=== PATIENT | female | born 1995 | race Hispanic/Latino ===

== ENCOUNTER 2020-07-25 17:28 | Emergency (ER) | payer OTHER, SELFPAY ==
[2020-07-25] MEDS ORDERED: Promethazine HCl 25 MG/ML VIAL ONE (18:41)
[2020-07-25] MEDS ORDERED: Acetaminophen 500 MG TAB ONE (18:41)
[2020-07-25] MEDS ORDERED: Sodium Chloride 0.9% 1,000 ML ONE (18:41)
[2020-07-25 18:48] LABS: #Basophils 0.1 thou/uL (0.0-0.2); #Lymphocytes 2.2 thou/uL (1.20-3.40); #Monocytes 0.9 thou/uL (0.11-0.59); #Neutrophils 8.9 thou/uL (1.40-6.50); %Eosinophils 0.4 % (0.0-10.0); %Lymphocytes 18.2 % (21.0-51.0); %Monocytes 7.6 % (0.0-10.0); %Neutrophils 72.8 % (42.0-75.0); Hemoglobin 15.3 g/dL (12.0-16.0); Mean Corpuscular HGB CONC 33.9 g/dL (32.0-36.0); Mean Corpuscular Volume 85.5 fL (78.0-98.0); Mean Platelet Volume 7.9 fL (7.4-10.4); Platelet Count 157 thou/uL (130-400); RBC Distribution Width 11.3 % (11.5-14.5); White Blood Cell (WBC) Count 12.3 thou/uL (4.8-10.8)
[2020-07-25 18:58] LABS: BHCG - Serum Negative (NEGATIVE); Pregs Control Bar Appear? YES (CONTROL BAR)
[2020-07-25 19:01] LABS: Bilirubin Negative (Negative); Blood, Urine Trace (Negative); Glucose, Urine (Dipstick) Negative (Negative); Ketone, Urine 40 mg/dL (Negative); Leukocyte Negative (Negative); Nitrite Negative (Negative); Protein, Urine (Dipstick) Trace mg/dL (Neg-Trace); Specific Gravity, Urine 1.025 (1.005-1.030); Urobilinogen 0.2 mg/dL (Less than 2)
[2020-07-25 19:02] LABS: ALT (SGPT) 15 U/L (8-55); AST (SGOT) 13 U/L (5-34); Albumin 4.4 g/dL (3.5-5.0); Alkaline Phosphatase 57 U/L (40-110); Anion Gap 15 mmol/L (10-20); BUN (Urea Nitrogen) 5 mg/dL (7.0-18.7); Bilirubin, Total 0.5 mg/dL (0.2-1.2); Calc. Creatinine Clearance 0 mL/min (70-130); Calcium 8.5 mg/dL (7.8-10.44); Carbon Dioxide 20 mmol/L (22-29); Chloride 104 mmol/L (98-107); Glucose 95 mg/dL (70-105); Potassium 3.4 mmol/L (3.5-5.1); Protein, Total 7.4 g/dL (6.0-8.3); Sodium 136 mmol/L (136-145)
[2020-07-25 19:04] LABS: Clarity SL HAZY (Clear)
[2020-07-25 19:11] LABS: RBC/HPF 0-3 HPF (0-3); Squamous Epithelial 0-3 HPF (0-3); WBC/HPF 0-3 HPF (0-3)
--- NOTE | 2020-07-25 19:21 | RAD ---
EXAM: Chest PA and lateral: HISTORY: Fever. COMPARISON: None FINDINGS: Heart: Normal cardiac silhouette Aorta: Unremarkable Pulmonary vessels: Normal Costophrenic angles: Costophrenic angles are clear. Lungs: No consolidation or masses. Pneumothorax: No pneumothorax Osseous structures: No osseous abnormalities IMPRESSION: No acute cardiopulmonary process.
[2020-07-26 17:58] LABS: SARS-CoV-2 MS2 Positive; SARS-CoV-2 N Gene Negative; SARS-CoV-2 S Gene Negative; SARS-CoV-2 by NAA Not Detected (NotDetected); SARS-CoV-2 orf1ab Negative
== END 2020-07-25 20:48 | disposition home or self-care (01) ==
LOC: NAV ERS 17:28
DX: R20.0 Anesthesia of skin (principal); R07.9 Chest pain, unspecified; R42 Dizziness and giddiness; Z20.828 Contact with and (suspected) exposure to other viral communicable diseases; D50.9 Iron deficiency anemia, unspecified; Z79.899 Other long term (current) drug therapy
CPT/HCPCS: 51701; 71046; 80053; 81003; 81015; 83605; 84484; 84703; 85025; 85379; 87635; 87804; 93005; 96365; 96366; J2550; J7050; U0003

== ENCOUNTER 2020-10-10 15:08 | Emergency (ER) | payer OTHER, SELFPAY | END 2020-10-10 15:25 | disposition home or self-care (01) | LOC: NAV ERS 15:08 | DX: B86 Scabies (principal); D50.9 Iron deficiency anemia, unspecified; Z79.899 Other long term (current) drug therapy | CPT/HCPCS: 99282 ==

== ENCOUNTER 2021-11-25 15:41 | Emergency (ER) | payer MEDICAID, SELFPAY ==
[2021-11-25] MEDS ORDERED: methylPREDNISolone Sod Succ/PF 125 MG/2 ML VIAL ONE (16:05)
[2021-11-25] MEDS ORDERED: Famotidine 20 MG TAB ONE (16:05)
== END 2021-11-25 16:47 | disposition home or self-care (01) ==
LOC: NAV ERS 15:41
DX: T78.40XA Allergy, unspecified, initial encounter (principal); D50.9 Iron deficiency anemia, unspecified
CPT/HCPCS: 96372; 99283; J2930

== ENCOUNTER 2021-11-27 16:06 | Emergency (ER) | payer MEDICAID, OTHER, SELFPAY ==
[2021-11-27 17:30] LABS: ALT (SGPT) 16 U/L (8-55); AST (SGOT) 22 U/L (5-34); Albumin 4.1 g/dL (3.5-5.0); Alkaline Phosphatase 65 U/L (40-110); Anion Gap 15 mmol/L (10-20); BUN (Urea Nitrogen) 18 mg/dL (7.0-18.7); Bilirubin, Total 0.3 mg/dL (0.2-1.2); Calc. Creatinine Clearance 0 mL/min (70-130); Carbon Dioxide 22 mmol/L (22-29); Chloride 108 mmol/L (98-107); Globulin 3.1 g/dL (2.4-3.5); Glucose 118 mg/dL (70-105); Potassium 3.9 mmol/L (3.5-5.1); Protein, Total 7.2 g/dL (6.0-8.3); Sodium 141 mmol/L (136-145)
== END 2021-11-27 17:43 | disposition home or self-care (01) ==
LOC: NAV ERS 16:06
DX: R53.1 Weakness (principal); T43.615A Adverse effect of caffeine, initial encounter; E86.0 Dehydration; D50.9 Iron deficiency anemia, unspecified
CPT/HCPCS: 80053; 99284